=== PATIENT | male | born 1980 | race Caucasian/White ===

== ENCOUNTER 2024-09-17 11:43 | Emergency (ER) | payer OTHER, SELFPAY ==
[2024-09-17 11:46] VITALS: BMI 33.7
[2024-09-17 11:47] VITALS: BP 137/83
--- NOTE | 2024-09-17 11:58 | ED.GENMED ---
History of Present Illness
General
Chief Complaint: Musculo-Skeletal Complaint
Source: patient and police
Exam Limitations: none
Time Seen by Provider: 09/17/24 11:50
Nursing documentation reviewed up to this point in time: agreed with
History of Present Illness
History of Present Illness:
Patient presents to ED for medical evaluation, as patient hit his head against glass window, as he was brought inside the vehicle by police officers, on his way to present. Patient requested that patient to be medically cleared prior to
incarceration. Upon arrival, patient has no complaints and reports no injury. Denies headache. Denies neck pain. Of note, patient has had extensive right shoulder surgery with previous rotator cuff injury and dislocation. Today, during
transport, patient states that his right shoulder was dislocated, which he was able to reduce on his own. As such, at the time of evaluation, patient has no complaints.
Review of Systems
Review of Systems
Allergies reviewed?: Yes
All Other Systems: ROS reviewed and negative except as documented in HPI and ROS
Constitutional: Reports no symptoms
Respiratory: Reports no symptoms
Cardiac: Reports no symptoms
ABD/GI: Reports no symptoms
Musculoskeletal: Reports no symptoms; Denies neck pain
Skin: Reports no symptoms
Neurological: Reports no symptoms; Denies dizzy or headache
Phy Exam
Physical Exam
Physical Exam:
Physical Exam
General: no apparent distress, not acutely ill. afebrile
Head: nc/at. eomi
Neck: supple. normal range of motion.
Heart: s1/s2 regular rate and rhythm, no murmur. .
Lungs: no acute respiratory distress. clear bilaterally. chest wall nontender to palpation
Abdomen: normal bowel sounds. not tender.
Neuro: alert and oriented x 3. no focal neurological deficits
Skin: no rash
Psychiatric: well kept. interactive and cooperative
Extremities: no edema. no calf tenderness. normal range of motion
Course
Vital Signs
Initial and Last Documented VS:
Initial Vital Signs
Temp Pulse Resp BP Pulse Ox
98.8 F 71 16 137/83 99
09/17/24 11:47 09/17/24 11:47 09/17/24 11:47 09/17/24 11:47 09/17/24 11:47
Last Documented Vital Signs
Temp Pulse Resp BP Pulse Ox
98.8 F 71 16 137/83 99
09/17/24 11:47 09/17/24 11:47 09/17/24 11:47 09/17/24 11:47 09/17/24 11:47
MDM/Problems Addressed
MDM/Problems Addressed:
Patient medically cleared for incarceration. No evidence of injury on exam. No further evaluation indicated.
*Critical Care Note
Total Time (30-74mins, 75-104mins- exclusive of procedures): Not Applicable
ED Attending Note
-
Portions of this chart may have been created with voice recognition software.� Occasional wrong word or��sound alike� substitutions may have occurred due to the inherent limitations of voice recognition software.
Discharge Plan
Departure
Patient Disposition: Jail
Date of Disposition: 09/17/24
Time of Disposition: 12:07
Patient with high blood pressure during this ER visit?: Yes
Discharge Problem:
Minor head injury, Shoulder pain
Instructions: Minor Head Injury, Adult ED, Shoulder pain - ED discharge instructions
Activity Restrictions/Additional Instructions:
As discussed, you were evaluated in the Emergency Department today. Based on examination, there is no indication for any further evaluation or imaging studies at this time. You/patient are medically cleared to be admitted at [facility] for further treatment.
Interventions
Interventions:
*Risk Screen - Suicide Last Done: 09/17/24 11:53
*General Assessment Last Done: 09/17/24 11:53
*Neglect/Abuse Screening Last Done: 09/17/24 11:53
*ED- Fall Risk Assessment Last Done: 09/17/24 11:52
*ED COVID-19 Vaccine History Last Done: 09/17/24 11:52
*Nursing Disposition Last Done: 09/17/24 12:13
ED-Musculoskeletal Assessment Last Done: 09/17/24 11:54
Discharge Date and Time
Discharge Date/Time: 09/17/24 12:20
Print Language: PORTUGUESE
== END 2024-09-17 12:20 ==
LOC: EMR 11:43
PROVIDERS: EMERGENCY PHYSICIAN Emergency Medicine
DX: S09.90XA Unspecified injury of head, initial encounter (principal); M25.519 Pain in unspecified shoulder; X58.XXXA Exposure to other specified factors, initial encounter
CPT/HCPCS: 99282